=== PATIENT | female | born 1995 | race Caucasian/White ===

== ENCOUNTER 2019-08-01 12:31 | Emergency (ER) | payer OTHER ==
[~2019-08-01] VITALS: Ht 157.5 cm; Wt 57.0 kg
[2019-08-01] MEDS ORDERED: ACETAMINOPHEN 500MG TABLET PO ONE (13:45)
[2019-08-01 14:44] VITALS: BP 136/87
== END 2019-08-01 14:44 | disposition home or self-care (01) ==
LOC: ER 13:02
DX: S13.4XXA Sprain of ligaments of cervical spine, initial encounter (principal); V29.9XXA Motorcycle rider (driver) (passenger) injured in unspecified traffic accident, initial encounter; Y93.89 Activity, other specified; Y92.89 Other specified places as the place of occurrence of the external cause; Y99.8 Other external cause status
CPT/HCPCS: 71101; 72040; 99284